=== PATIENT | male | born 1985 | race Caucasian/White ===

== ENCOUNTER 2024-08-30 18:35 | Emergency (ER) | payer OTHER, SELFPAY ==
[2024-08-30 18:38] VITALS: BP 144/92; PULSE 92; RESP 18; TEMP 37; O2SAT 98; BMI 27.8
--- NOTE | 2024-08-30 19:11 | XRR_ITS ---
PROCEDURE INFORMATION: Exam: XR Left Knee Exam date and time: 08/30/2024 7:16 PM Age: 39 years old Clinical indication: Injury or trauma; Other: Chainsaw; Laceration; Patella or knee; Left; Without foreign body TECHNIQUE: Imaging protocol: Radiologic exam of the left knee. Views: 3 views. COMPARISON: No relevant prior studies available. FINDINGS: Bones/joints: No evidence of acute fracture or dislocation. No erosive disease. No significant degenerative change. No visible joint effusion. Soft tissues: No radiopaque foreign body. XR/XR knee LT 3V* [id number] IMPRESSION: Normal exam.
[2024-08-30] MEDS: tetanus-dipt-pertussis 0.5 mL SDV IM (19:15)
--- NOTE | 2024-08-30 19:18 | ED_ITS ---
HPI - Wound/Laceration General: Chief Complaint: Wound/Laceration Stated Complaint: knee lac chainsaw Time Seen by Provider: 08/30/24 19:04 History of Present Illness: Patient is a pleasant 39-year-old male without prior history that presents to the emergency room due to laceration to left knee. This occurred just prior to arrival. Patient was using a chainsaw, and this came down on his knee just medial to his kneecap. He has pain, bleeding. Bleeding has been controlled in triage. Associated symptoms: Denies chills, fever(s), nausea or vomiting Related Data Previous Rx's ?Medication ?Instructions ?Recorded fluticasone propionate 50 1 spray intranasal BID #16 g patrick 06/17/21 mcg/actuation nasal spray,suspension (Flonase Allergy Relief) montelukast 10 mg tablet 10 mg PO DAILY #30 tabs 05/10 (Singulair) cephalexin 500 mg capsule 500 mg PO TID #6 caps Allergies Allergy/AdvReac Type Severity Reaction Status Date / Time No Known Allergies Allergy Verified 08/30/24 18:38 Review of Systems General: Reports: 10 or more systems reviewed and unremarkable except in HPI and below Const: Denies: fever(s) or chills Resp: Denies: dyspnea or productive cough GI: Denies: abdominal pain, nausea or vomiting : Denies: flank pain or difficulty urinating Neuro: Denies: headache(s) or numbness in extremities Psych: Denies: anxiety or depression PFS ED PFSH: Social History (Updated 06/17/21 @ 09:08 by Tristin Lee LPN) Smoking and tobacco/nicotine status: never used tobacco/nicotine Alcohol intake: current Alcohol intake frequency: holidays/special occasions only Substance/Drug Use: never Physical Exam Const: COMMON NORMALS: no acute distress and patient oriented x3 GENERAL APPEARANCE: cooperative HENMT: COMMON NORMALS: normocephalic and hearing grossly normal bilaterally HEAD & SCALP: normocephalic Neck/C-Spine: COMMON NORMALS: no JVD Chest: COMMONS NORMALS: normal inspection of the chest Resp: COMMON NORMALS: normal respiratory effort and clear to auscultation bilaterally EFFORT & INSPECTION: Yes able to speak in complete sentences AUSCULTATION: clear to auscultation bilaterally Cardio: COMMON NORMALS: no JVD, regular rate, regular rhythm, S1 normal heart sound present and S2 normal heart sound present RATE: regular rate RHYTHM: regular rhythm HEART SOUNDS: S1 normal heart sound present and S2 normal heart sound present GI: COMMON NORMALS: Normal to inspection, nondistended, normoactive bowel sounds present INSPECTION: Yes normal to inspection : COMMON NORMALS: Yes no CVA tenderness BLADDER/KIDNEY EXAM: Yes no CVA tenderness Back/Pelvis: COMMON NORMALS: no CVA tenderness Extremity: COMMON NORMALS: normal to inspection, full ROM and capillary refill normal Neuro: COMMON NORMALS: patient oriented x3 Procedures Laceration Laceration 1: Site: lower extremity Side (If applicable): left Size (cm): 6 Description: linear, contaminated, involves lid margin and other Depth: involves muscle layer Local Anesthetic: lidocaine 1% and with epi Amount of anesthesia used (mL): 7 Pre-repair: wound explored, irrigated extensively and wound margins revised (small pulsing to medial. d/w dr. bethea. post suture, no bleeding or swelling) Skin layer closed with: nylon (3.0, fs1) Technique: other (horizontal mattress) Course Vital Signs: Vital signs: Vital Signs Temperature 98.6 F 08/30/24 18:38 Pulse Rate 92 08/30/24 18:38 Respiratory Rate 18 08/30/24 18:38 Blood Pressure 144/92 08/30/24 18:38 Pulse Oximetry 98 08/30/24 18:38 Oxygen Delivery Me thod Room Air 08/30/24 18:38 MDM - Wound/Laceration Medical Decision Making Patient is a 39-year-old male with laceration to left knee after a chainsaw incident just prior to arrival. He did have mild pulsation to the medial portion of his left knee after the surgical bed was cleared. Discussed with attending, this stopped after first stitch. Will apply pressure dressing. Horizontal sutures obtained due to high stress area. Patient tolerated well without incident. XR interpretation done by ED provider, pending radiology final review ED provider radiology interpretation(s): no acute findings. no fracture, soft tissue laceration Discharge Plan Discharge Patient Disposition: Home Clinical Impression: Laceration of knee, left, complicated Qualifiers: Encounter type: initial encounter Qualified Code(s): S81.012A - Laceration without foreign body, left knee, initial encounter Condition: Stable Prescriptions: New cephalexin 500 mg capsule 500 mg PO TID Qty: 6 0RF No Action fluticasone propionate [Flonase Allergy Relief] 50 mcg/actuation spray,suspension 1 spray intranasal BID Qty: 16 0RF Rx Instructions: administer into each nostril montelukast [Singulair] 10 mg tablet 10 mg PO DAILY Qty: 30 0RF Discharge Orders: Discharge ED (Routine); Ordered 08/30/24 Ordered By: Sue Torres Referrals: Roque Pradhan MD [Family Provider, Family Practice] Josie Larson [Primary Care Provider, Wound Care] Discharge Diet: Usual diet Discharge Activity: Increase activity as tolerated Patient Instructions: Laceration (ED) Activity Restrictions/Additional Instructions: He will require 14 days of your sutures in place given that this is over a joint space If you have increasing redness, fever, or drainage, return to ED. A pressure dressing has been placed over the Vaseline gauze. You may apply Vaseline with a Q-tip to this area. This will need to be washed every day with Dial soap/an antibacterial soap. You did receive a tetanus today No driving while on narcotics. Have your drive. Use Tylenol, or ibuprofen after initial narcotic to control pain. Take antibiotics as directed x 2 days for prophylaxis. I would utilize probiotic, or active culture yogurt to avoid infectious diarrhea from antib iotics Print Language: Macanese Coding Level of Care Code ED Logistics Planner for Padma Rowe
[2024-08-30] MEDS: lidocaine-epi 1% PF 1:200,000 30 mL SDV INJECTION (20:03)
[2024-08-30] MEDS: oxyCODONE-APAP 10-325 mg Tablet 1 TAB PO (20:24)
[2024-08-30] MEDS: cefTRIAXone 1,000 MG in water for injection-sterile 2.1 ML 2.1 MG IM (20:24)
== END 2024-08-30 20:32 | disposition home or self-care (01) ==
PROVIDERS: Emergency Provider Physician Assistant; Family Provider General Practice; PCP Nurse Practitioner Family
DX: S81.012A Laceration without foreign body, left knee, initial encounter (principal); W29.3XXA Contact with powered garden and outdoor hand tools and machinery, initial encounter
CPT/HCPCS: 12032; 73562; 90471; 90715; 96372; 99284; J0696; J9999